=== PATIENT | female | born 1965 | race Caucasian/White ===

== ENCOUNTER → 2018-11-16 | Outpatient (CLI) | payer OTHER ==
--- NOTE | 2018-11-17 03:29 | US ---
EXAMINATION TYPE: US mass soft tissue chest/back DATE OF EXAM: 11/16/2018 COMPARISON: NONE CLINICAL HISTORY: 53-year-old female Left chest mass R22.2. Technique: Talent Director notes: Left-sided area of pain scanned from just lateral to breast around the site at patient's entire area of pain. FINDINGS: Scanning of the left lateral chest wall along the site of patient's pain shows no solid or cystic les ion or discrete abnormality of the superficial soft tissues. IMPRESSION: No discrete sonographic abnormality scanning along the left lateral chest wall targeted to the site o f the patient's pain.
== END | disposition home or self-care (01) ==
LOC: RADUSWWP 13:32
PROVIDERS: ATTEND Surgery Plastic and Reconstructive Surgery
DX: R22.2 Localized swelling, mass and lump, trunk (principal); Z88.2 Allergy status to sulfonamides

== ENCOUNTER → 2019-11-25 | Outpatient (CLI) | payer OTHER ==
--- NOTE | 2019-11-25 16:01 | CT ---
EXAMINATION TYPE: CT abdomen pelvis w con DATE OF EXAM: 11/25/2019 COMPARISON: Prior CT 06/06/2015 HISTORY: Ventral Hernia CT DLP: 1918 mGycm Automated exposure control for dose reduction was used. TECHNIQUE: Helical acquisition of images from the lung bases through the pelvis have been completed. CONTRAST: Performed with Oral Contrast and with IV Contrast, patient injected with 100 mL of Isovue 300. FINDINGS: Small umbilical hernia contains fat. The supraumbilical abdominal wall hernia containing fa t on previous exam likely has been repaired, no evident recurrence. LUNG BASES: No significant abnormality is appreciated. AORTA: No significant abnormality is appreciated. LIVER/GB: Low-attenuation liver likely represents hepatic steatosis, the liver is enlarged and size, gallbladder is absent. PANCREAS: No significant abnormality is seen. SPLEEN: No significant abnormality is seen. ADRENALS: No significant abnormality is seen. KIDNEYS: No significant abnormality is seen. REPRODUCTIVE ORGANS: Bulky appearance of the uterus likely represents fibroids. BOWEL: Diverticular changes associated with the sigmoid colon. Retained fecal debris throughout the distribution of the transverse colon and ascending colon. No evident appendicitis. FREE AIR: No Free Air visible. ASCITES: None visible. PELVIC ADENOPATHY: None visualized. RETROPERITONEAL ADENOPATHY: No Retroperitoneal Adenopathy visible. URINARY BLADDER: No significant abnormality is seen. OSSEOUS STRUCTURES: No significant interval change is seen degenerative disc changes are present wit hin the spine with associated facet arthropathy lower lumbar spine. IMPRESSION: SMALL PERIUMBILICAL HERNIA. INTERVAL RESOLUTION OF SUPRAUMBILICAL HERNIA. HEPATIC STEATOSIS AND HEPAT OMEGALY. FIBROID UTERUS. DIVERTICULOSIS.
== END | disposition home or self-care (01) ==
LOC: RADCTMAIN 11:59
DX: K76.0 Fatty (change of) liver, not elsewhere classified (principal); D25.9 Leiomyoma of uterus, unspecified; K42.9 Umbilical hernia without obstruction or gangrene; R16.0 Hepatomegaly, not elsewhere classified; K57.90 Diverticulosis of intestine, part unspecified, without perforation or abscess without bleeding
CPT/HCPCS: 74177; Q9967 ×2

== ENCOUNTER → 2023-10-12 | Outpatient (CLI) | payer MEDICARE, OTHER ==
--- NOTE | 2023-10-12 14:28 | MR ---
EXAMINATION TYPE: MR lumbar spine wo con DATE OF EXAM: 10/12/2023 COMPARISON: None HISTORY: 58-year-old female M43.16, Chronic LBP with BLE radiculopathy. TECHNIQUE: Multiplanar, multisequence images of the lumbar spine were acquired without IV contrast. FINDINGS: There is a transitional lumbosacral segment denoted as a lumbarized S1. There is hypertrophic facet arthropathy lower lumbar spine. Degenerative trace grade 1 anterolisthesi s L4-L5. Remaining alignment is maintained. Moderate multilevel disc disease with desiccated, bulging, and mildly narrowed disc throughout. Vacuu m phenomenon is present at L5-S1. Conus medullaris is normal. No suspicious bone marrow replacement. Posterior disc bulge at L1-L2 impresses on ventral thecal sac. Similar changes at L4-L5 and L5-S1 lev el without significant spinal canal stenosis. On the left, changes result in mild neuroforaminal narrowing at L5-S1. Disc material at this level mo stly approaches and may abut the traversing left S1 nerve root. On the right, there is mild right neural foraminal narrowing at L5-S1. Disc material closely approach es and may abut the traversing right S1 nerve root. IMPRESSION: 1. Transitional lumbosacral segment denoted as a lumbarized S1. 2. Moderate multilevel degenerative disc disease. Os ureter disc bulges are present at multiple level s. No large focal disc herniation or significant spinal canal stenosis. 3. Additional facet arthropathy mid to lower lumbar spine. Trace degenerative grade 1 anterolisthesis L4-L5. 4. There is mild bilateral neuroforaminal narrowing at L5-S1. Disc material at this level closely benito roaches and may abut the traversing S1 nerve roots on both sides.
== END | disposition home or self-care (01) ==
LOC: RADMRIMAIN 10:14
PROVIDERS: ATTEND Physical Medicine & Rehabilitation
DX: M99.74 Connective tissue and disc stenosis of intervertebral foramina of sacral region (principal); M47.26 Other spondylosis with radiculopathy, lumbar region; M47.22 Other spondylosis with radiculopathy, cervical region; M43.12 Spondylolisthesis, cervical region; M43.16 Spondylolisthesis, lumbar region; M51.17 Intervertebral disc disorders with radiculopathy, lumbosacral region; M47.27 Other spondylosis with radiculopathy, lumbosacral region; M41.26 Other idiopathic scoliosis, lumbar region; M16.11 Unilateral primary osteoarthritis, right hip; M50.123 Cervical disc disorder at C6-C7 level with radiculopathy; M50.122 Cervical disc disorder at C5-C6 level with radiculopathy
CPT/HCPCS: 72148